=== PATIENT | female | born 1990 | race Caucasian/White ===

== ENCOUNTER 2017-05-28 14:24 | Emergency (ER) | payer OTHER ==
[2017-05-28 14:37] VITALS: RESP 16
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
[2017-05-28] MEDS ORDERED: NS 1,000 ML IV ONE (15:04)
[2017-05-28] MEDS ORDERED: METOCLOPRAMIDE 10 MG/2 ML VIAL IVP ONE (15:04)
[2017-05-28] MEDS ORDERED: KETOROLAC 30 MG/1 ML SDV IVP ONE (15:04)
[2017-05-28] MEDS ORDERED: DEXAMETHASONE 10 MG/ML VIAL IVP ONE (15:04)
[2017-05-28 15:09] LABS: % IMMATURE GRANULYOCYTES 0.2 % (0.0-1.1); ABSOLUTE IMMATURE GRANULOCYTES 0.02 10^3/uL (0.00-0.10); ADD DIFF? NO; ADD MORPH? NO; ADD SCAN? NO; ATYPICAL LYMPHOCYTE FLAG 0 (0-99); FRAGMENT RBC FLAG 0 (0-99); HEMATOCRIT 45.8 % (38.0-47.0); HEMOGLOBIN 15.1 g/dL (12.6-16.3); LEFT SHIFT FLG 0 (0-99); LIPEMIA HEMOLYSIS FLAG 80 (0-99); MEAN CELL HEMOGLOBIN 28.8 pg (27.9-34.1); MEAN CELL VOLUME 87.4 fL (81.5-99.8); MEAN PLATELET VOLUME 8.7 fL (8.7-11.7); PLATELET CLUMPS FLAG 10 (0-99); PLATELET COUNT 352 10^3/uL (150-400); RED BLOOD CELL COUNT 5.24 10^6/uL (4.18-5.33); RED CELL DISTRIBUTION WIDTH 14.1 % (11.5-15.2)
[2017-05-28 15:15] LABS: CALCIUM 9.2 mg/dL (8.5-10.4); CREATININE 1.1 mg/dL (0.6-1.0); POTASSIUM 3.7 mEq/L (3.5-5.2)
[2017-05-28 16:50] VITALS: BP 125/86; TEMP 98.2; O2SAT 93
[2017-05-28 17:43] VITALS: PULSE 73
== END 2017-05-28 16:50 | disposition home or self-care (01) ==
LOC: CED 14:24
DX: G43.809 Other migraine, not intractable, without status migrainosus (principal); E86.9 Volume depletion, unspecified
CPT/HCPCS: 70450-PO; 80048-PO; 85025-PO; 96374; J1100; J1200; J1885; J2765

== ENCOUNTER → 2017-06-26 | Outpatient (CLI) | payer OTHER | LOC: FIMAGING 07:48 | PROVIDERS: ATTEND Internal Medicine Gastroenterology | DX: R10.11 Right upper quadrant pain (principal) | CPT/HCPCS: 76705-PO ==

== ENCOUNTER → 2017-07-24 | Outpatient (CLI) | payer OTHER | LOC: FIMAGING 08:48 | PROVIDERS: ATTEND Internal Medicine Gastroenterology | DX: R10.9 Unspecified abdominal pain (principal); K59.01 Slow transit constipation | CPT/HCPCS: A9537 ==

== ENCOUNTER → 2017-10-27 | Outpatient (CLI) | payer BC | LOC: FIMAGING 12:03 | PROVIDERS: ATTEND Radiology Diagnostic Radiology | DX: Z09 Encounter for follow-up examination after completed treatment for conditions other than malignant neoplasm (principal); Z96.9 Presence of functional implant, unspecified; Z98.890 Other specified postprocedural states ==

== ENCOUNTER 2018-03-05 10:35 | Emergency (ER) | payer BC ==
[2018-03-05] MEDS ORDERED: KETOROLAC 30 MG/1 ML SDV IVP ONE (11:11)
[2018-03-05] MEDS ORDERED: METOCLOPRAMIDE 10 MG/2 ML VIAL IV ONE (11:11)
[2018-03-05] MEDS ORDERED: DEXAMETHASONE 10 MG/ML VIAL IVP ONE (11:11)
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
[2018-03-05 13:38] VITALS: BP 116/77
== END 2018-03-05 14:00 | disposition home or self-care (01) ==
LOC: CED 10:35
DX: R51 Headache (principal)
CPT/HCPCS: 70450-PO; 96374; J1100; J1200; J1885; J2765

== ENCOUNTER 2018-03-29 21:36 | Emergency (ER) | payer BC ==
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
[2018-03-29] MEDS ORDERED: NS 1,000 ML IV ONE ×2 (22:01→23:35)
[2018-03-29] MEDS ORDERED: LORazepam 2 MG/ML INJ IVP ONE (22:01)
[2018-03-29 22:14] LABS: PLATELET COUNT 380 10^3/uL (150-400)
[2018-03-30 01:54] VITALS: BP 116/82
== END 2018-03-30 01:53 | disposition home or self-care (01) ==
LOC: EDUNIT#
DX: F41.9 Anxiety disorder, unspecified (principal); E86.9 Volume depletion, unspecified
CPT/HCPCS: 84484-PO; 96374; J1200; J2060